=== PATIENT | female | born 1950 ===

== ENCOUNTER 2018-07-20 07:48 | Day surgery (SDC) | payer BC ==
[2018-07-20 08:20] VITALS: BMI 27.2
[2018-07-20 08:34] VITALS: TEMP 96.8
[2018-07-20] MEDS ORDERED: Lactated Ringer's 500 ML IV ONE ×2 (08:34)
[2018-07-20] MEDS ORDERED: Propofol 10 mg/ml Inj (20 ML) ONE (09:25)
[2018-07-20 10:03] VITALS: O2SAT 99
[2018-07-20 10:15] VITALS: BP 121/64; PULSE 70; RESP 14
== END 2018-07-20 10:20 | disposition home or self-care (01) ==
LOC: H.ENDO 07:48
PROVIDERS: ATTEND Internal Medicine Gastroenterology
DX: Z12.11 Encounter for screening for malignant neoplasm of colon (principal); E11.9 Type 2 diabetes mellitus without complications; I10 Essential (primary) hypertension; K64.8 Other hemorrhoids; K57.30 Diverticulosis of large intestine without perforation or abscess without bleeding; K29.50 Unspecified chronic gastritis without bleeding; R10.13 Epigastric pain
CPT/HCPCS: 43239; 45378; 88305; J2001; J2704; J7120